=== PATIENT | male | born 1955 | race Caucasian/White ===

== ENCOUNTER 2018-04-23 19:25 | Observation (INO) ==
--- NOTE | 2018-04-23 21:47 | ED ---
HPI General Chief complaint: Pain: Chronic Stated complaint: BACK,NECK,BILATERAL SHOULDER PAIN [id number] Time Seen by Provider: 04/23/18 20:37 Source: patient and family Mode of arrival: ambulatory Limitations: no limitations History of Present Illness HPI narrative: Patient is a 62-year-old male who presents with complaint of chronic neck, back, left shoulder pain that is unchanged. This has been ongoing for the last month and he has seen a chiropractor with some improvement. He comes in today with complaint of tingling to bilateral hands from the fingers down (not including the arms), bilateral sides of his face, and bilateral lower extremity starting at the thighs. No weakness, change in speech, change in swallowing. No difficulty walking. This has happened before several years ago and he does not know what the cause was. Onset (ago): month(s) Radiation: non-radiation Severity: mild Quality: aching Pain Consistency: constant Relieving factors: none Exacerbating factors: none Associated symptoms: Reports denies other symptoms Treatments prior to arrival: Reports other Related Data Home Medications Medication Instructions Recorded Confirmed No Known Home Medications 04/23/18 04/23/18 Allergies Allergy/AdvReac Type Severity Reaction Status Date / Time aspirin Allergy Severe CHEST Verified 04/23/18 19:58 TIGHTENS atorvastatin Allergy Severe MUSCLE/JOINT Verified 04/23/18 19:58 ACHES Review of Systems ROS: all other systems reviewed are negative [facility] Medical History Medical History No active medical problems (Acute) Surgical History Surgical History Hx of eye surgery (Acute) Hx of hernia repair (Acute) Hx of knee surgery (Acute) Social History Social History Substance History: No History of Abuse Second Hand Smoke Exposure: No Smoking Status: Heavy tobacco smoker Tobacco Type: Cigarettes How Often Do You Have a Drink Containing Alcohol: Never Recent Travel in [facility] within the Last 8 Weeks: No Recent Out of Country Travel within the Last 8 Weeks: No Immunization History Tetanus Immunization: <5 Years Exam Narrative Exam Narrative: GENERAL: Well-appearing male in no acute distress SKIN: Focused skin assessment warm/dry. No rashes. HEAD: Atraumatic. Normocephalic. EYES: Pupils equal and round. No scleral icterus. No injection or drainage. ENT: No nasal bleeding or discharge. Mucous membranes pink and moist. NECK: Trachea midline. No JVD. No bruits. CARDIOVASCULAR: Regular rate and rhythm. No murmur appreciated. Intact and equal peripheral pulses. RESPIRATORY: No accessory muscle use. Clear to auscultation. Breath sounds equal bilaterally. GASTROINTESTINAL: Abdomen soft, non-tender, nondistended. Hepatic and splenic margins not palpable. MUSCULOSKELETAL: No obvious deformities. No clubbing. No cyanosis. No edema. NEUROLOGICAL: Awake and alert. No obvious cranial nerve deficits. Normal speech. Normal strength in all 4 extremities. No facial droop. No ataxia nor dysmetria. Normal gait. He has sensation everywhere but feels tingling in bilateral face, bilateral fingers, bilateral legs. PSYCHIATRIC: Appropriate mood and affect; insight and judgment normal. Course Consultations Consultation #1: I spoke with Dr Arnold, Neurologist asset protection professional, whom agreed that his symptoms did not sound like a stroke/dissection. He recommended the patient have the Head CT, then be admitted for MRI of the head and neck (with and without contrast) and to have a routine consult for neurology in the morning. Time: 21:50 Initial Documented Vital Signs Temperature 98.9 F 04/23/18 19:58 Pulse Rate 88 04/23/18 19:58 Respiratory Rate 20 04/23/18 19:58 Blood Pressure 146/65 H 04/23/18 19:58 Pulse Oximetry 95 04/23/18 19:58 Last Documented Vital Signs Temperature 98.9 F 04/23/18 19:58 Pulse Rate 72 04/23/18 22:14 Respiratory Rate 20 04/23/18 22:14 Blood Pressure 114/67 04/23/18 22:14 Pulse Oximetry 96 04/23/18 22:14 Medical Decision Making MDM Narrative Medical decision making narrative: Patient is a 62-year-old male who presents with complaint of tingling to the bilateral face, bilateral hands from the fingers down in bilateral legs from the thighs down. He has no weakness, changes in speech, changes in swallowing. No dysmetria nor ataxia. No abnormal gait and with no visual field deficits. His symptoms are not consistent with a stroke nor a dissection. I spoke with Dr. Arnold, the neurologist on-call, who recommended that the patient have a head CT and be admitted for MRI of the head and neck with and without contrast. Labs and head CT are unremarkable. I spoke with Dr. Payne, hospitalist on-call, whom agreed to the observation admission. Medical Screen Exam Complete: Yes Emergency Medical Condition: Yes Differential Diagnosis Differential Diagnosis: Differential diagnosis includes but is not limited to electrolyte abnormality, multiple sclerosis, other neuropathy. Medical Records Medical records reviewed: Yes I reviewed the patient's medical records. Lab Data Result diagrams: 04/23/18 22:00 04/23/18 22:00 Lab Results 04/23/18 04/23/18 Range/Units 22:00 22:00 WBC 9.7 (4.0-11.0) th/mm3 RBC 5.02 (4.50-5.90) mil/mm3 Hgb 15.1 (13.0-17.0) gm/dL Hct 45.9 (39.0-51.0) % MCV 91.4 (80.0-100.0) fL MCH 30.1 (27.0-34.0) pg MCHC 33.0 (32.0-36.0) % RDW 12.8 (11.6-17.2) % Plt Count 194 (150-450) th/mm3 MPV 8.4 (7.0-11.0) fL Sodium 140 (136-145) meq/L Potassium 4.4 (3.5-5.1) meq/L Chloride 110 H (98-107) meq/L Carbon Dioxide 24.3 (21.0-32.0) meq/L Anion Gap 6 (5-15) meq/L BUN 18 (7-18) mg/dL Creatinine 0.95 (0.60-1.30) mg/dL Estimated GFR 80 L (>89) mL/min Random Glucose 110 H (74-106) mg/dL Calcium 9.0 (8.5-10.1) mg/dL Imaging Data Radiologist's impression: Head CT 04/23/18 21:14 CONCLUSION: 1. No acute intracranial abnormalities. Chiari I malformation similar to prior examinations. The cerebellar tonsils extend through the foramen magnum. . . Discharge Plan Discharge Disposition Patient Disposition: Sign Out(ED Internal Use Only) Discharge Condition Condition: Fair Discharge Order Discharge Orders: ED Use Only Admit Order (Routine); Ordered 04/23/18 Ordered By: Sanjuanita Obando Discharge Details Diagnosis: Facial paresthesia Physicians Team ED Provider: Sanjuanita Obando Primary Care Provider: Fernando Capone Rxs /Orders / Referrals /Forms Prescriptions: No Action No Known Home Medications RF: 0 Discharge Interventions Interventions: Vital Signs Last Done: 04/23/18 22:14 Status ED Status: Pending Admission
[2018-04-23 22:15] LABS: Hematocrit 45.9 % (39.0-51.0); Hemoglobin 15.1 gm/dL (13.0-17.0); Mean Corpuscular Hemoglobin 30.1 pg (27.0-34.0); Mean Corpuscular Volume 91.4 fL (80.0-100.0); Mean Platelet Volume 8.4 fL (7.0-11.0); Platelet Count 194 th/mm3 (150-450); Red Blood Count 5.02 mil/mm3 (4.50-5.90); Red Cell Distribution Width 12.8 % (11.6-17.2); White Blood Count 9.7 th/mm3 (4.0-11.0)
[2018-04-23 22:20] LABS: Potassium 4.4 meq/L (3.5-5.1)
[2018-04-23 22:23] LABS: Carbon Dioxide 24.3 meq/L (21.0-32.0)
--- NOTE | 2018-04-23 22:35 | CT ---
EXAM DATE: 04/23/2018 10:29 PM EST AGE/SEX: 62 years / Male INDICATIONS: Back and neck pain for one month. CLINICAL DATA: This is the patient's initial encounter. Patient reports that signs and symptoms have been present for 1 day and indicates a pain score of 5/10. MEDICAL/SURGICAL HISTORY: . . Eye. Hernia. Knee. RADIATION DOSE: 59.60 CTDI (mGy) COMPARISON: [facility], CT BRAIN W/O CONTRAST, 01/08/2016. . TECHNIQUE: CT of the head without contrast. Using automated exposure control and adjustment of the mA and/or kV according to patient size, radiation dose was kept as low as reasonably achievable to ob tain optimal diagnostic quality images. DICOM format image data is available electronically for revi ew and comparison. FINDINGS: Cerebrum: The ventricles are normal for age. No evidence of midline shift, mass lesion, hemorrhage or acute infarction. No extraaxial fluid collections are seen. Posterior Fossa: The cerebellum and brainstem are intact. The 4th ventricle is midline. The cerebe llopontine angle is unremarkable. Extracranial: The visualized portion of the orbits is intact. Skull: The calvaria is intact. No evidence of skull fracture. CONCLUSION: 1. No acute intracranial abnormalities. Chiari I malformation similar to prior examinations. The cer ebellar tonsils extend through the foramen magnum. . . Electronically signed by: Simon Mcmahan MD Board Certified Radiologist 04/23/2018 10:34 PM EST
[2018-04-24 01:42] LABS: Folate 19.2 ng/mL (3.1-17.5); Vitamin B12 622 pg/mL (193-986)
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
[2018-04-24] MEDS ORDERED: MethylPREDNISolone Sod Succinate Inj 40 MG/ML Vial IV.PUSH ONE (08:00)
[2018-04-24] MEDS ORDERED: Methocarbamol 500 MG Tablet PO ONE (08:00)
[2018-04-24 11:52] VITALS: BP 132/70; PULSE 74; RESP 18; TEMP 97; O2SAT 98
[2018-04-24] MEDS ORDERED: Gadobutrol PF 2 MMOL/2 ML Vial (for RAD) IV.SIG ONE (12:31)
--- NOTE | 2018-04-24 13:32 | MR ---
EXAM DATE: 04/24/2018 1:09 PM EST AGE/SEX: 62 years / Male INDICATIONS: . Head and neck pain. CLINICAL DATA: This is the patient's subsequent encounter. Patient reports that signs and symptoms h ave been present for 2 days and indicates a pain score of 3/10. MEDICAL/SURGICAL HISTORY: None. None. Cataract, knee surgery, hernia repair COMPARISON: [facility], MR CERVICAL SPINE W/O CONTRAST, 08/23/2014. . TECHNIQUE: Multiplanar, multisequence MRI examination of the cervical spine was performed without an d with 8 ml Gadavist (gadobutrol) contrast as a single exam dose. FINDINGS: Vertebrae: Normal vertebral body height. Homogeneous marrow signal. Alignment: Normal. Cord: Normal configuration and signal. Post Fossa: The cerebellar tonsils are normal in position. Post Contrast: No abnormal areas of enhancement are seen. C2-C3: Disc is desiccated but otherwise normal. No foraminal or spinal stenosis. C3-C4: The disc is desiccated but otherwise normal. Mild uncovertebral and facet osteoarthritis, mos tly on the right. No foraminal or spinal stenosis. C4-C5: The disc is desiccated but otherwise normal. There is mild to moderate bilateral facet osteoa rthritis and mild bilateral uncovertebral osteoarthritis. No foraminal or spinal stenosis. C5-C6: The disc is desiccated and has mild to moderate loss of height. There is a small, broad poste rior disc osteophyte complex and moderate bilateral uncovertebral and facet osteoarthritis. There is slight effacement of the anterior aspect of the thecal sac without cord compression or cord signal ab normality. There is mild bilateral foraminal encroachment. C6-C7: The disc is desiccated and has moderate loss of height. There is a small, broad posterior dis c osteophyte complex and left greater than right uncovertebral and facet osteoarthritis. There is mil d effacement of the anterior aspect of the thecal sac without cord compression or cord signal abnorma lity. There is mild right and moderate to severe left foraminal stenosis C7-T1: The disc is desiccated but otherwise within normal limits. Mild bilateral facet osteoarthriti s. No foraminal or spinal stenosis. CONCLUSION: 1. Cervical spine degenerative changes as described, considerably worse C5/C6 and C6/C7 relative to the 2014 comparison. 2. Mild bilateral foraminal stenosis at C5/C6. 3. Mild right and moderate to severe left foraminal stenosis at C6/C7. 4. No significant spinal stenosis. No cord compression or cord signal abnormality. Electronically signed by: Caio Rodriguez MD Board Certified Radiologist 04/24/2018 1:31 PM EST
--- NOTE | 2018-04-24 13:38 | MR ---
EXAM DATE: 04/24/2018 1:08 PM EST AGE/SEX: 62 years / Male INDICATIONS: . Head and neck pain. CLINICAL DATA: This is the patient's subsequent encounter. Patient reports that signs and symptoms h ave been present for 2 days and indicates a pain score of 3/10. MEDICAL/SURGICAL HISTORY: None. . Cataract surgery, knee surgery, hernia repair COMPARISON: [facility], CT HEAD W/O CONTRAST, 04/23/2018. [facility], MR CERVICAL SPINE W & W/O CON, 9. [facility], MR CERVICAL SPINE W/O CONTRAST, 08/23/2014. . TECHNIQUE: Multiplanar, multisequence examination of the brain was performed without and with 8 ml Ga davist (gadobutrol) contrast as a single exam dose. FINDINGS: Cerebrum: The ventricles are normal for age. No evidence of midline shift, mass lesion, h emorrhage or acute infarction. No extraaxial fluid collections are seen. The pituitary gland and farfan prasellar cistern are normal in configuration. White Matter: No significant signal abnormalities are seen in the white matter. Posterior Fossa: The cerebellum and brainstem are intact. The 4th ventricle is midline. The cerebel lopontine angle is unremarkable. Cerebellar tonsils are approximately 1.8 cm below the foramen magnum typical of Chiari I malformation. The cerebellar tonsils are normal in position. Diffusion Imaging: No focal areas of restricted diffusion are seen. No evidence of acute infarction . Extracranial: The visualized portions of the orbits and paranasal sinuses are unremarkable. Post Contrast: No abnormal areas of parenchymal or dural enhancement. No evidence of blood-brain ba rrier breakdown. CONCLUSION: 1. Chiari malformation. 2. No acute intracranial abnormality. Electronically signed by: Caio Rodriguez MD Board Certified Radiologist 04/24/2018 1:36 PM EST
--- NOTE | 2018-04-24 15:40 | P.PNADD ---
Addendum to Inpatient Note Reason for Addendum: Additional Documentation Additional information: I spoke with pt. He is doing better. Has been walking around independently with no problem. MRIs d/w pt. He reports that his numbness has resolved, but still has the chronic pain. No loss b/b fxn. Will d/c home with outpt neuro f/u. May need NS eval again. Advised to avoid compressive forces to neck region.
== END 2018-04-24 16:30 | disposition home or self-care (01) ==
LOC: PHEDA 19:25 → PHEFT 19:25 → PH3 23:56
PROVIDERS: ADMIT Family Medicine; ATTEND Family Medicine
DX: M50.323 Other cervical disc degeneration at C6-C7 level; G93.5 Compression of brain; M54.2 Cervicalgia; R20.2 Paresthesia of skin; F17.210 Nicotine dependence, cigarettes, uncomplicated; G89.29 Other chronic pain
CPT/HCPCS: 70450; 70553; 72156; 80048; 82607; 82746; 84443; 85027; 86038; 86140; 96374; 97161; 99285; A9585; G0378; G8987; G8988; J2920